=== PATIENT | male | born 1960 | race Caucasian/White ===

== ENCOUNTER 2019-06-29 16:56 | Outpatient (CLI) | payer BC, SELFPAY | END 2019-06-29 16:57 | disposition home or self-care (01) | LOC: ANHLAB 16:58 | PROVIDERS: PCP Internal Medicine; Visit Provider Internal Medicine | DX: R19.7 Diarrhea, unspecified (principal) | CPT/HCPCS: 87045; 87046; 87324; 87427 ==

== ENCOUNTER 2019-07-01 13:18 | Outpatient (CLI) | payer BC, SELFPAY | END 2019-07-01 13:19 | disposition home or self-care (01) | PROVIDERS: PCP Internal Medicine; Visit Provider Internal Medicine | DX: R19.7 Diarrhea, unspecified (principal) | CPT/HCPCS: 87045; 87046; 87427 ==

== ENCOUNTER 2019-07-26 14:15 | Outpatient (CLI) | payer BC, SELFPAY | END 2019-07-26 14:16 | disposition home or self-care (01) | PROVIDERS: PCP Internal Medicine; Visit Provider Internal Medicine | DX: A04.72 Enterocolitis due to Clostridium difficile, not specified as recurrent (principal) | CPT/HCPCS: 87324 ==

== ENCOUNTER 2019-10-27 07:30 | Outpatient (RCR) | payer BC, SELFPAY | END 2019-10-27 23:59 | disposition home or self-care (01) | LOC: ANHAUDIO 07:30 | PROVIDERS: PCP Internal Medicine; Visit Provider Internal Medicine | DX: Z46.1 Encounter for fitting and adjustment of hearing aid (principal) | CPT/HCPCS: 99199 ==

== ENCOUNTER 2020-05-11 11:35 | Outpatient (CLI) | payer BC, SELFPAY | END 2020-05-11 11:36 | disposition home or self-care (01) | PROVIDERS: PCP Internal Medicine; Visit Provider Internal Medicine | DX: R19.7 Diarrhea, unspecified (principal) | CPT/HCPCS: 87045; 87046; 87324; 87427 ==

== ENCOUNTER 2020-07-01 11:49 | Outpatient (CLI) | payer BC, SELFPAY | END 2020-07-01 11:50 | disposition home or self-care (01) | PROVIDERS: PCP Internal Medicine; Visit Provider Internal Medicine Gastroenterology | DX: K52.9 Noninfective gastroenteritis and colitis, unspecified (principal) | CPT/HCPCS: 87324 ==

== ENCOUNTER → 2020-07-20 06:37 | Outpatient (CLI) | payer BC, SELFPAY ==
[2020-07-20 19:16] LABS: SARS-CoV-2 RNA PCR Negative
== END ==
PROVIDERS: PCP Internal Medicine; Visit Provider Internal Medicine Gastroenterology
DX: Z01.812 Encounter for preprocedural laboratory examination (principal); Z20.822 Contact with and (suspected) exposure to COVID-19
CPT/HCPCS: C9803; U0003; U0005

== ENCOUNTER 2020-07-24 01:19 | Day surgery (SDC) | payer BC, SELFPAY ==
[2020-07-15 10:16] VITALS: BMI 44.8
[2020-07-24 09:24] VITALS: BP 136/95; PULSE 93; RESP 18; TEMP 36.6; O2SAT 96; BMI 41.5
--- NOTE | 2020-07-24 09:29 | WPDANESEPPF ---
Anes - Initial Pre Proc Eval Procedure: Operation Date: 07/24/20 10:30 Proposed Procedures p Colonoscopy - Hugo Bojorquez MD Date/Time: 07/24/20 09:29 Surgeon: Hugo Bojorquez MD Pre Op Diagnosis: diarrhea Patient Data Age: 59 Gender: M Height: 6 ft Weight: 139 kg Last Vital Signs Temp 36.6 C 07/24/20 09:24 Pulse 93 07/24/20 09:24 Resp 18 07/24/20 09:24 BP 136/95 H 07/24/20 09:24 Pulse Ox 96 07/24/20 09:24 Allergies Allergy/AdvReac Type Severity Reaction Status Date / Time No Known Allergies Allergy Verified 07/15/20 10:13 Home Medications Medication Instructions Recorded Confirmed Type bupropion HCl 300 mg 24 hr tablet, See Rx Instructions .ROUTE 09/28/19 07/15/20 Rx extended release .COMPLEX #90 tablet atorvastatin 20 mg tablet See Rx Instructions .ROUTE 03/04/20 07/15/20 Rx .COMPLEX #90 tablet citalopram 20 mg tablet See Rx Instructions .ROUTE 03/18/20 07/15/20 Rx .COMPLEX #90 tablet amlodipine 5 mg tablet See Rx Instructions .ROUTE 04/24/20 07/15/20 Rx .COMPLEX #90 tablet candesartan 32 mg tablet See Rx Instructions .ROUTE 05/31/20 07/15/20 Rx .COMPLEX #90 tablet diphenoxylate-atropine [Lomotil] 1 tablet PO TID PRN 07/15/20 07/15/20 History lansoprazole [Prevacid SoluTab] 30 mg PO DAILY 07/15/20 07/15/20 History Patient hx anesthesia problems: none Family hx anesthesia problems: none PMFSH Past Medical History Medical History Depression Gastroesophageal reflux disease Hypertension Mixed hyperlipidemia PHILIPPE (obstructive sleep apnea) Family History Family History Mother Carcinoma of colon Family history of heart disease in male family member before age 55 Father Family history of heart disease in male family member before age 55 Acute myocardial infarction Ulcerative colitis Social History Social History Smoking status: Never smoker Alcohol intake: never Substance use type: does not use Living arrangements: with family Gender identity (if verbalized by the patient): Male Anes - Eval Final PreProcedure Day of Procedure 07/24/20 09:29 Patient weight: morbidly obese Heart: regular rate and rhythm Lungs: clear to auscultation Airway: Mallampati scale class II Neurological: alert and oriented Last oral intake: >/= 8 hours ASA classification: III Emergent: no Anesthetic plan: proceed Anesthesia type and monitoring: general GIVS and standard monitoring Informed Consent: The patient's anesthetic plan and its attendant risks and benefits were discussed with the patient/family/POA. Questions were solicited and answers provided to the satisfaction of the patient/family/POA.
[2020-07-24] MEDS: LACTATED RINGERS 1,000 ML 150 ML IV CONT (09:34)
[2020-07-24 11:09] VITALS: BP 90/53; PULSE 82; RESP 24; O2SAT 94
[2020-07-24 11:19] VITALS: BP 111/71; PULSE 80; RESP 21; O2SAT 98
[2020-07-24 11:29] VITALS: BP 109/70; PULSE 77; RESP 18; O2SAT 98
--- NOTE | 2020-07-26 16:17 | PM.HPGS ---
History of Present Illness History of Present Illness Consent: Risks, benefits, and alternatives have been discussed and questions answered. Patient agrees to proceed with procedure. Chief complaint: diarrhea Narrative: Pedro Almonte is a 59 year old male with chronic diarrhea. Beginning in April he began to have very frequent loose and fact watery stools. Stool cultures were done all of which came back negative. Initially C difficile could not be tested because he had taken a stool that was not liquid enough; but we then repeated and it was negative Review of Systems Review of Systems: All systems reviewed & are unremarkable except as noted in HPI and below PMFSH Past Medical History Medical History Depression Gastroesophageal reflux disease Hypertension Mixed hyperlipidemia PHILIPPE (obstructive sleep apnea) Family History Family History Mother Carcinoma of colon Family history of heart disease in male family member before age 55 Father Family history of heart disease in male family member before age 55 Acute myocardial infarction Ulcerative colitis Social History Social History Smoking status: Never smoker Alcohol intake: never Substance use type: does not use Living arrangements: with family Gender identity (if verbalized by the patient): Male Meds Home Medications and Allergies Home Medications Medication Instructions Recorded Confirmed Type bupropion HCl 300 mg 24 hr tablet, See Rx Instructions .ROUTE 09/28/19 07/15/20 Rx extended release .COMPLEX #90 tablet atorvastatin 20 mg tablet See Rx Instructions .ROUTE 03/04/20 07/15/20 Rx .COMPLEX #90 tablet citalopram 20 mg tablet See Rx Instructions .ROUTE 03/18/20 07/15/20 Rx .COMPLEX #90 tablet amlodipine 5 mg tablet See Rx Instructions .ROUTE 04/24/20 07/15/20 Rx .COMPLEX #90 tablet candesartan 32 mg tablet See Rx Instructions .ROUTE 05/31/20 07/15/20 Rx .COMPLEX #90 tablet diphenoxylate-atropine [Lomotil] 1 tablet PO TID PRN 07/15/20 07/15/20 History lansoprazole [Prevacid SoluTab] 30 mg PO DAILY 07/15/20 07/15/20 History Allergies Allergy/AdvReac Type Severity Reaction Status Date / Time No Known Allergies Allergy Verified 07/15/20 10:13 Exam Resp: Auscultation: clear to auscultation bilaterally Cardio: Rate: regular rate Rhythm: regular rhythm GI: GI Palp: Yes Soft to palpation and No Tenderness to palpation present (GI) Assessment and Plan Assessment and plan (1) Chronic diarrhea: Code(s): K52.9 - Noninfective gastroenteritis and colitis, unspecified Status: Acute Assessment and Plan: Colonoscopy with possible biopsy or polypectomy or cautery or injection of substances.
== END 2020-07-24 11:38 | disposition home or self-care (01) ==
PROVIDERS: PCP Internal Medicine; Visit Provider Internal Medicine Gastroenterology
PROC: 0DJD8ZZ Inspection of Lower Intestinal Tract, Via Natural or Artificial Opening Endoscopic (ICD-10-PCS; CPT 45378; principal; 2020-07-24 10:30)
DX: R19.7 Diarrhea, unspecified (principal); D12.5 Benign neoplasm of sigmoid colon; I10 Essential (primary) hypertension; E78.2 Mixed hyperlipidemia; G47.33 Obstructive sleep apnea (adult) (pediatric); K21.9 Gastro-esophageal reflux disease without esophagitis; F32.9 Major depressive disorder, single episode, unspecified; E66.01 Morbid (severe) obesity due to excess calories; Z68.41 Body mass index [BMI] 40.0-44.9, adult
CPT/HCPCS: 45380; 45385; 88305; J2001; J2704; J7120

== ENCOUNTER 2020-09-05 08:00 | Outpatient (RCR) | payer SELFPAY | END 2020-09-05 23:59 | disposition home or self-care (01) | LOC: ANHAUDIO 08:00 | PROVIDERS: PCP Internal Medicine; Visit Provider Internal Medicine | DX: Z46.1 Encounter for fitting and adjustment of hearing aid (principal) | CPT/HCPCS: 99199; V5014 ==

== ENCOUNTER 2020-12-04 08:31 | Outpatient (CLI) | payer BC, SELFPAY ==
[2020-12-04 09:00] LABS: Alanine Aminotransferase 19 U/L (4-50); Albumin Level 4.5 g/dL (3.5-5.1); Alkaline Phosphatase 92 U/L (38-126); Anion Gap 11 mmol/L (8-16); Aspartate Amino Transferase 24 U/L (17-59); Bilirubin,Total 0.7 mg/dL (0.2-1.3); Blood Urea Nitrogen 11 mg/dL (9-20); Calcium 9.7 mg/dL (8.4-10.2); Carbon Dioxide 22 mmol/L (22-30); Chloride 107 mmol/L (98-107); Cholesterol 112 mg/dL (0-200); Estimated Glomerular Filt Rate > 60; Glucose 98 mg/dL (65-110); HDL Direct 33 mg/dL; Potassium 4.2 mmol/L (3.4-5.0); Sodium 140 mmol/L (137-145); Triglycerides 61 mg/dL (<150)
[2020-12-04 09:10] LABS: LDL Cholesterol Direct 57 mg/dL
[2020-12-04 09:29] LABS: Prostate Specific Antigen 1.1 ng/mL (< OR = 4.0)
== END 2020-12-04 08:32 | disposition home or self-care (01) ==
PROVIDERS: PCP Internal Medicine; Visit Provider Internal Medicine
DX: Z79.899 Other long term (current) drug therapy (principal); I10 Essential (primary) hypertension; Z12.5 Encounter for screening for malignant neoplasm of prostate; E78.5 Hyperlipidemia, unspecified
CPT/HCPCS: 36415; 80053; 80061; 84153; G0103

== ENCOUNTER 2021-01-30 12:34 | Outpatient (RCR) | payer BC, SELFPAY | END 2021-01-30 23:59 | disposition home or self-care (01) | LOC: ANHAUDIO 12:34 | PROVIDERS: PCP Internal Medicine; Visit Provider Internal Medicine | DX: Z46.1 Encounter for fitting and adjustment of hearing aid (principal) | CPT/HCPCS: 99199 ==

== ENCOUNTER 2021-06-10 07:27 | Outpatient (CLI) | payer BC, SELFPAY ==
[2021-06-10 08:07] LABS: Alanine Aminotransferase 16 U/L (4-50); Alkaline Phosphatase 67 U/L (38-126); Anion Gap 5 mmol/L (8-16); Aspartate Amino Transferase 24 U/L (17-59); Bilirubin,Total 0.7 mg/dL (0.2-1.3); Blood Urea Nitrogen 17 mg/dL (9-20); Calcium 8.7 mg/dL (8.4-10.2); Carbon Dioxide 26 mmol/L (22-30); Chloride 108 mmol/L (98-107); Cholesterol 122 mg/dL (0-200); Estimated Glomerular Filt Rate > 60; Glucose 94 mg/dL (65-110); HDL Direct 34 mg/dL; Potassium 4.1 mmol/L (3.4-5.0); Sodium 139 mmol/L (137-145); Triglycerides 59 mg/dL (<150)
[2021-06-10 08:19] LABS: LDL Cholesterol Direct 67 mg/dL
== END 2021-06-10 07:28 | disposition home or self-care (01) ==
PROVIDERS: PCP Internal Medicine; Visit Provider Internal Medicine
DX: E78.5 Hyperlipidemia, unspecified (principal); Z79.899 Other long term (current) drug therapy; I10 Essential (primary) hypertension
CPT/HCPCS: 36415; 80053; 80061

== ENCOUNTER 2021-11-04 08:00 | Outpatient (RCR) | payer BC, SELFPAY | END 2021-11-04 23:59 | disposition home or self-care (01) | LOC: ANHAUDIO 08:00 | PROVIDERS: PCP Internal Medicine; Visit Provider Internal Medicine | DX: Z46.1 Encounter for fitting and adjustment of hearing aid (principal) | CPT/HCPCS: 99199; V5014 ==

== ENCOUNTER 2022-01-09 08:22 | Outpatient (CLI) | payer BC, SELFPAY ==
[2022-01-09 09:04] LABS: Alanine Aminotransferase 22 U/L (6-50); Albumin Level 4.2 g/dL (3.5-5.1); Alkaline Phosphatase 66 U/L (38-126); Anion Gap 7 mmol/L (8-16); Aspartate Amino Transferase 26 U/L (17-59); Bilirubin,Total 0.9 mg/dL (0.2-1.3); Blood Urea Nitrogen 18 mg/dL (9-20); Calcium 8.9 mg/dL (8.4-10.2); Carbon Dioxide 27 mmol/L (22-30); Chloride 105 mmol/L (98-107); Cholesterol 117 mg/dL (0-200); Estimated Glomerular Filt Rate > 60; Glucose 99 mg/dL (65-110); HDL Direct 40 mg/dL; Potassium 4.3 mmol/L (3.4-5.0); Sodium 139 mmol/L (137-145); Triglycerides 47 mg/dL (<150)
[2022-01-09 09:17] LABS: LDL Cholesterol Direct 64 mg/dL
== END 2022-01-09 08:23 | disposition home or self-care (01) ==
PROVIDERS: PCP Internal Medicine; Visit Provider Nurse Practitioner
DX: E78.5 Hyperlipidemia, unspecified (principal); Z12.5 Encounter for screening for malignant neoplasm of prostate
CPT/HCPCS: 36415; 80053; 80061; 84153; G0103

== ENCOUNTER 2022-02-02 08:30 | Outpatient (CLI) | payer BC, SELFPAY | END 2022-02-02 08:31 | disposition home or self-care (01) | LOC: ANHAUDASC 08:30 | PROVIDERS: PCP Internal Medicine; Visit Provider Internal Medicine | DX: H90.3 Sensorineural hearing loss, bilateral (principal) | CPT/HCPCS: 92557; 92567 ==

== ENCOUNTER 2022-07-17 07:43 | Outpatient (CLI) | payer BC, SELFPAY ==
[2022-07-17 08:41] LABS: Alanine Aminotransferase 18 U/L (6-50); Albumin Level 4.3 g/dL (3.5-5.1); Alkaline Phosphatase 61 U/L (38-126); Anion Gap 7 mmol/L (8-16); Aspartate Amino Transferase 21 U/L (17-59); Bilirubin,Total 0.8 mg/dL (0.2-1.3); Blood Urea Nitrogen 19 mg/dL (9-20); Calcium 8.8 mg/dL (8.4-10.2); Carbon Dioxide 26 mmol/L (22-30); Chloride 104 mmol/L (98-107); Cholesterol 132 mg/dL (0-200); Estimated Glomerular Filt Rate > 60; Glucose 94 mg/dL (65-110); HDL Direct 38 mg/dL; Potassium 4.1 mmol/L (3.4-5.0); Sodium 137 mmol/L (137-145); Triglycerides 63 mg/dL (<150)
[2022-07-17 08:52] LABS: LDL Cholesterol Direct 74 mg/dL
== END 2022-07-17 07:44 | disposition home or self-care (01) ==
LOC: ANHLAB 07:45
PROVIDERS: PCP Internal Medicine; Visit Provider Internal Medicine
DX: E78.2 Mixed hyperlipidemia (principal); I10 Essential (primary) hypertension
CPT/HCPCS: 36415; 80053; 80061

== ENCOUNTER 2023-04-16 09:40 | Outpatient (CLI) | payer BC, SELFPAY ==
[2023-04-16 10:00] LABS: Basophils Absolute Auto 0.1 K/mm3 (0.0-0.1); Basophils Percent Auto 0.7 % (0.2-1.2); Eosinophils Absolute Auto 0.2 K/mm3 (0-0.3); Eosinophils Percent Auto 3.4 % (0-4.4); Hematocrit 41.6 % (42.0-52.0); Hemoglobin 13.9 g/dL (14.0-18.0); Immature Granulocyte Absolute 0.02 K/mm3 (0.00-0.031); Immature Granulocyte Percent A 0.3 % (0-0.5); Lymphocytes Absolute Auto 2.59 K/mm3 (0.9-3.2); Lymphocytes Percent Auto 37.9 % (18.3-44.2); Mean Corpuscular HGB Conc 33.4 g/dl (32-36); Mean Corpuscular Volume 95.9 fl (80-100); Mean Platelet Volume 10.2 fl (7.4-10.4); Monocytes Absolute Auto 0.9 K/mm3 (0.1-0.6); Monocytes Percent Auto 12.7 % (2.6-8.5); Neutrophils Absolute Auto 3.1 K/mm3 (1.3-6.7); Platelet Count Result 250 k/mm3 (150-375); Red Blood Count 4.34 M/mm3 (4.6-6.20); Red Cell Distribution Width 13.7 % (11.5-14.5); White Blood Count 6.8 K/mm3 (4.5-10.0)
[2023-04-16 10:17] LABS: Alanine Aminotransferase 23 U/L (6-50); Albumin Level 4.1 g/dL (3.5-5.1); Alkaline Phosphatase 72 U/L (38-126); Anion Gap 8 mmol/L (8-16); Aspartate Amino Transferase 29 U/L (17-59); Bilirubin,Total 0.8 mg/dL (0.2-1.3); Blood Urea Nitrogen 19 mg/dL (9-20); Calcium 9.3 mg/dL (8.4-10.2); Carbon Dioxide 26 mmol/L (22-30); Chloride 105 mmol/L (98-107); Cholesterol 139 mg/dL (0-200); Estimated Glomerular Filt Rate > 60; Glucose 94 mg/dL (65-110); HDL Direct 35 mg/dL; Potassium 4.2 mmol/L (3.4-5.0); Sodium 139 mmol/L (137-145); Triglycerides 63 mg/dL (<150)
[2023-04-16 10:33] LABS: Vitamin D 25 Hydroxy 52.1 ng/mL
[2023-04-16 10:48] LABS: Prostate Specific Antigen 0.7 ng/mL (< OR = 4.0)
[2023-04-16 13:21] LABS: LDL Cholesterol Direct 98 mg/dL
== END 2023-04-16 09:41 | disposition home or self-care (01) ==
LOC: ANHLAB 09:42
PROVIDERS: PCP Nurse Practitioner; Visit Provider Nurse Practitioner
DX: Z00.00 Encounter for general adult medical examination without abnormal findings (principal); E55.9 Vitamin D deficiency, unspecified; I10 Essential (primary) hypertension; E78.2 Mixed hyperlipidemia; Z12.5 Encounter for screening for malignant neoplasm of prostate
CPT/HCPCS: 36415; 80053; 80061; 82306; 82607; 84153; 85025; G0103

== ENCOUNTER 2024-06-02 10:14 | Outpatient (CLI) | payer BC, SELFPAY ==
--- OUTSIDE RECORDS SUMMARY | 2024-06-02 10:56 | XMS_ITS ---
Author Organization [facility] [employer] Address [address] [place] [address] Care Team Providers Care Credit Advisor Name Role Phone Sam CLIFTON, Milo Primary Care Provider Donnie Wilkinson Unavailable [phone] REASON FOR VISIT Refill Medications Medication SIG (Take, Route, Fr equency, Duration) Notes Start Date End Date Status Trintellix 20 MG 1 tablet Oral Once a day for 30 days Active Social History Sex Assigned At : Social History Observation Description Sex Assigned At Male Encounters Encounter Location Date Provider Diagnosis [facility] [address] [place] [address] 04/28/2024 Donnie Sy Major depressive disorder, recurrent, mild F33.0 Assessments Encounter Date Diagnosis (ICD Code) Assessment Notes Treatment Notes Treatment Clinical Notes Section Notes 04/28/2024 Major depressive disorder, recurrent, mild (ICD-10 - F33.0) Plan Of Treatment Medication Medication Name Sig Start Date Stop Date Notes Trintellix 20 MG 1 tablet Oral Once a day for 30 days Next Appt Details Provider Name:Donnie ascencio, 06/26/2024 11:45:00 AM, [address], [address], [place], [address], Progress Notes * GALEN FRANCEDOB:1960 (63 yo M)Acc No.[id number]:04/28/2024 Patient: GALEN STOVALL :1960 A ge:63 Y S ex:Male Address:[address], [place], [address] * Refills Refill Trintellix Tablet, 20 MG, Oral, 30 Tablet, 1 tablet, Once a day, 30 days, Refills=0 * true * Date: Generated for Andrei rhodes/Amy/Rajeev on: 0 06/02/2024 10:56 AM CDT
--- OUTSIDE RECORDS SUMMARY | 2024-06-02 10:56 | XMS_ITS | Patient Health Record ---
Author Organization [facility] Address [address] [facility] [address] [place] [address] Care Team Providers Care Mesh Cutter Name Role Phone Sam CLIFTON, Milo Primary Care Provider Unavaila Donnie Archer Unavailable [phone] Migration, Provider Unavailable Unavailable Allergies No Known Allergies Results Component Value Reference Range Notes UDT Reviewed date:08/26/2023 03:27:58 PM Interpretation: Performing Lab: Notes/Report: THC negative 0 - 50 ng/ml Cocaine negative Amphetamine negative Buprenorphine (BUP) negative Secobarbital (Bar) negative Oxazepam (BZO) negative 6-zxoiujsubp-5,0-rnmenkib-7, 3-diphenylpyrrolidine (EDDP) negative Methamphetamine (MET) negative Methylenedioxymethamphetamine (MDMA) negative Morphine (MOP 300/SYT1259) negative Methadone (MTD) negative Phencyclidine (PCP) negative Nortriptyline (TCA) negative x negative Reason For Referral No Information Medications Medication SIG (Take, Route, Frequency, Duration) Notes Start Date End Date Status Lisdexamfetamine Dimesylate 30 MG 1 capsule in the morning Orally Once a day for 30 days 05/01/2024 Active Candesartan Cilexetil 32 MG Oral 07/26/2023 Active Tamsulosin HCl 0.4 MG Oral 07/26/2023 Active Trintellix 20 MG 1 tablet Oral Once a day for 90 days Active Methylphenidate HCl ER 36 MG 2 tablet ev marlene morning Oral once a day for 30 days 04/05/2024 Active Trintellix 20 MG 1 tablet Orally Once a day for 30 day(s) 12/20/2023 Active amLODIPine Besylate 5 MG Oral 07/26/2023 Active Atorvastatin Calcium 20 MG Oral 07/26/2023 Active Social History Tobacco Use: Social History Observation Description Date Details (start date - stop date) Never Smoker NA - NA Sex Assigned At : Social History Observation Description Sex Assigned At Male Tobacco Control (Standard) Question Answer Notes Tobacco use: Nonsmoker Problems Problem Type SNOMED Code ICD Code Onset Dates Problem Status W/U Status Risk Notes Problem Mild recurrent major depression (90145024) Major depressive disorder, recurrent, mild (F33.0) Active confirmed Problem Generalized anxiety disorder (13928981) Generalized anxiety disorder (F41.1) Active confirmed Problem Attention deficit hyperactivity disorder, combined type (38117066) Attention-deficit hyperactivity disorder, combined type (F90.2) 07/26/19 24 Active confirmed Vital Signs Heart Rate 97 /min 05/01/2024 Blood pressure diastolic 69 mm Hg 05/01/2024 Height-cm 182.88 cm 05/01/2024 Weight-kg 112.04 kg 05/01/2024 Height 72.00 in 05/01/2024 Blood pressure systolic 105 mm Hg 05/01/2024 Weight 247 lbs 05/01/2024 BMI 33.5 kg/m2 05/01/2024 Encounters Encounter Location Date Provider Diagnosis [facility] [address] [facility] [address] [place] [address] 06/14/2023 Provider Migration Attention-deficit hyperactivity disorder, combined type F90.2 [facility] [employer] [facility] [address] [place] [address] 06/24/2023 Donnie Sy Attention-deficit hyperactivity disorder, combined type F90.2 ; Major depressive disorder, recurrent, mild F33.0 and Generalized anxiety disorder F41.1 [employer] [address] [place] [address] 07/26/2023 Donnie Sy Generalized anxiety disorder F41.1 ; Major depressive disorder, recurrent, mild F33.0 and Attention-deficit hyperactivity disorder, combined type F90.2 [facility] [employer] [facility] [address] [place] [address] 08/26/2023 Donnie Sy Generalized anxiety disorder F41.1 ; Attention-deficit hyperactivity disorder, combined type F90.2 and Major depressive disorder, recurrent, mild F33.0 [facility], [facility] [address] [place] [address] 12/29/2023 Donnie Sy Generalized anxiety disorder F41.1 ; Attention-deficit hyperactivity disorder, combined type F90.2 and Major depressive disorder, recurrent, mild F33.0 [facility], [facility] [address] [place] [address] 05/01/2024 Donnie Sy Generalized anxiety disorder F41.1 ; Attention-deficit hyperactivity disorder, combined type F90.2 and Major depressive disorder, recurrent, mild F33.0 [facility], [facility] [address] [place] [address] 06/14/2023 Provider Migration [facility], [facility] [address] [place] [address] 08/07/2023 Provider Migration [facility], [facility] [address] [place] [address] 08/08/2023 Provider Migration [facility], [facility] [address] [place] [address] 10/26/2023 Donnie Sy Attention-deficit hyperactivity disorder, combined type F90.2 [facility], [facility] [address] [place] [address] 12/02/2023 Donnie Sy Attention-deficit hyperactivity disorder, combined type F90.2 [facility], [facility] [address] [place] [address] 12/17/2023 Donnie Sy Major depressive disorder, recurrent, mild F33.0 [facility], [facility] [address] [place] [address] 12/17/2023 Donnie Sy Major depressive disorder, recurrent, mild F33.0 [facility], [facility] [address] [place] [address] 01/11/2024 Donnie Sy Attention-deficit hyperactivity disorder, combined type F90.2 [facility], [facility] [address] [place] [address] 02/21/2024 Donnie Sy Attention-deficit hyperactivity disorder, combined type F90.2 [facility], [facility] [address] [place] [address] 04/05/2024 Donnie Sy Attention-deficit hyperactivity disorder, combined type F90.2 [facility] [address] [place] [address] 04/28/2024 Donnie Sy Major depressive disorder, recurrent, mild F33.0 Assessments Encounter Date Diagnosis (ICD Code) Assessment Notes Treatment Notes Treatment Clinical Notes Section Notes 12/02/2023 Attention-defic it hyperactivity disorder, combined type (ICD-10 - F90.2) 01/11/2024 Attention-defic it hyperactivity disorder, combined type (ICD-10 - F90.2) 02/21/2024 Attention-defic it hyperactivity disorder, combined type (ICD-10 - F90.2) 04/05/2024 Attention-defic it hyperactivity disorder, combined type (ICD-10 - F90.2) 04/28/2024 Major depressive disorder, recurrent, mild (ICD-10 - F33.0) 12/29/2023 Generalized anxiety disorder (ICD-10 - F41.1) stable 1. ADHD: - Patient reports Concerta 72 mg daily is working well for managing ADHD symptoms. - Patient is implementing personal strategies to improve work productivity. Plan: - Continue Concerta 72 mg daily. - Encourage the patient to continue using personal strategies to improve work productivity. - Monitor progress and effectiveness of medication at follow-up visits. 2. Depression: - Patient reports significant improvement in depressive symptoms with Trintellix 20 mg daily. Plan: - Continue Trintellix 20 mg daily. - Monitor progress and effectiveness of medication at follow-up visits. 3. Anxiety: - Patient reports no recent episodes of anxiety. Plan: - Continue to monitor anxiety levels at follow-up visits. 4. Follow-up: - Patient is stable and functioning well. Plan: - Schedule a follow-up visit in 4 months to monitor progress and medication effectiveness. 05/01/2024 Generalized anxiety disorder (ICD-10 - F41.1) stable 12/17/2023 Major depressive disorder, recurrent, mild (ICD-10 - F33.0) 10/26/2023 Attention-defic it hyperactivity disorder, combined type (ICD-10 - F90.2) 08/26/2023 Generalized anxiety disorder (ICD-10 - F41.1) 08/26/2023 Attention-defic it hyperactivity disorder, combined type (ICD-10 - F90.2) 07/26/2023 Major depressive disorder, recurrent, mild (ICD-10 - F33.0) 07/26/2023 Generalized anxiety disorder (ICD-10 - F41.1) 07/26/2023 Attention-defic it hyperactivity disorder, combined type (ICD-10 - F90.2) 06/24/2023 Major depressive disorder, recurrent, mild (ICD-10 - F33.0) 06/24/2023 Generalized anxiety disorder (ICD-10 - F41.1) 06/24/2023 Attention-defic it hyperactivity disorder, combined type (ICD-10 - F90.2) 06/14/2023 Attention-defic it hyperactivity disorder, combined type (ICD-10 - F90.2) 12/17/2023 Major depressive disorder, recurrent, mild (ICD-10 - F33.0) Electronic Prior Authorization was requested for Trintellix 20 MG Tablet. Provider can order medication once approval received. 05/01/2024 Attention-defic it hyperactivity disorder, combined type (ICD-10 - F90.2) 08/26/2023 Major depressive disorder, recurrent, mild (ICD-10 - F33.0) 12/29/2023 Attention-defic it hyperactivity disorder, combined type (ICD-10 - F90.2) 1. ADHD: - Patient reports Concerta 72 mg daily is working well for managing ADHD symptoms. - Patient is implementing personal strategies to improve work productivity. Plan: - Continue Concerta 72 mg daily. - Encourage the patient to continue using personal strategies to improve work productivity. - Monitor progress and effectiveness of medication at follow-up visits. 2. Depression: - Patient reports significant improvement in depressive symptoms with Trintellix 20 mg daily. Plan: - Continue Trintellix 20 mg daily. - Monitor progress and effectiveness of medication at follow-up visits. 3. Anxiety: - Patient reports no recent episodes of anxiety. Plan: - Continue to monitor anxiety levels at follow-up visits. 4. Follow-up: - Patient is stable and functioning well. Plan: - Schedule a follow-up visit in 4 months to monitor progress and medication effectiveness. 05/01/2024 Major depressive disorder, recurrent, mild (ICD-10 - F33.0) 12/29/2023 Major depressive disorder, recurrent, mild (ICD-10 - F33.0) 1. ADHD: - Patient reports Concerta 72 mg daily is working well for managing ADHD symptoms. - Patient is implementing personal strategies to improve work productivity. Plan: - Continue Concerta 72 mg daily. - Encourage the patient to continue using personal strategies to improve work productivity. - Monitor progress and effectiveness of medication at follow-up visits. 2. Depression: - Patient reports significant improvement in depressive symptoms with Trintellix 20 mg daily. Plan: - Continue Trintellix 20 mg daily. - Monitor progress and effectiveness of medication at follow-up visits. 3. Anxiety: - Patient reports no recent episodes of anxiety. Plan: - Continue to monitor anxiety levels at follow-up visits. 4. Follow-up: - Patient is stable and functioning well. Plan: - Schedule a follow-up visit in 4 months to monitor progress and medication effectiveness. 05/01/2024 Other 1. ADHD: - Patient reports struggling with motivation and inconsistent focus on Concerta 72 mg daily. Plan: - Discontinue Concerta. - Start lisdexamfetamine (Vyvanse) 30 mg daily in the morning. - Monitor for improvement in motivation and focus. - Encourage the patient to follow up in 4 weeks to assess the effectiveness of the new medication. 2. Difficulty finding a therapist for ADHD: - Patient expressed interest in finding a therapist with practical tools for ADHD. Plan: - Provided patient with information on [facility] and therapist Beverly Moore in [place]. - Recommended [facility] as a resource for ADHD information and support. 3. Sleep apnea: - Patient reports having a history of sleep apnea, previously treated with CPAP. - Patient has gained weight and may need to use the CPAP machine again but requires replacement parts and a new prescription. Plan: - Encourage the patient to follow up with their primary care provider or sleep specialist to obtain a new prescription for CPAP machine parts and discuss the need for a sleep study if necessary. Plan Of Treatment Next Appt Details Provider Name:oDnnie ascencio, 06/26/2024 11:45:00 AM, [address], [address], [place], [address], Insurance Providers Payer Name Payer Address Payer Phone Subscriber Number Group Number Insured Name Patient Relationship to Insured Coverage Start Date Coverage End Date [facility] [address] [place] [address] [id number] GRIFFIN FR[place] Spouse - patient is the spouse of the insured Medical (General) History Medical History History ICD Code Problems: Attention deficit hyperactivit y disorder, combined type Generalized anxiety disorder Mild recurrent major depression Moderate recurrent major depression , Surgical History Surgery Date(Month/Year) Any surgical history 10/21/1995
--- OUTSIDE RECORDS SUMMARY | 2024-06-02 10:56 | XMS_ITS ---
Author Organization [facility] Address [address] [facility] [address] [place] [address] Care Team Providers Care Exhibits Curator Name Role Phone zzzzMigration, zzzzProvider Unavailable Unav ailable REASON FOR VISIT [facility]MR-[facility] [place] Encounters Encounter Location Date Provider Diagnosis [facility] [address] [facility] [address] [place] [address] 01/10/2023 zzzzProvider zzzzMigration Plan Of Treatment No Information Progress Notes * JAIMECELIA PedroDOB:1960 (63 yo M)Acc No.[id number]:01/10/2023 Patient: Pedro STOVALL :1960 A ge:62 Y S ex:Male Address:[address] [place] [address] Subjective: * Chief Complaints: * E MR-Benito * Medical History: * Surgical History: * Hospitalization/Major Diagno stic Procedure: * Medications: Objective: * Vitals: * Physical Examination: Assessment: Plan: * Treatment: * Procedure Codes: * * Date:
--- OUTSIDE RECORDS SUMMARY | 2024-06-02 10:56 | XMS_ITS ---
Author Organization [facility] Address [address] [facility] [address] [place] [address] Care Team Providers Care Design Coordinator Name Role Phone zzzzMigration, zzzzProvider Unavailable Unav ailable REASON FOR VISIT [facility] Encounters Encounter Location Date Provider Diagnosis [facility] [address] [facility] [address] [place] [address] 01/09/2023 zzzzProvider zzzzMigration Plan Of Treatment No Information Progress Notes * JAIMECELIA PedroDOB:1960 (63 yo M)Acc No.[id number]:01/09/2023 Patient: Pedro STOVALL :1960 A ge:62 Y S ex:Male Address:[address] [place] [address] Subjective: * Chief Complaints: * E MR-Benito * Medical History: * Surgical History: * Hospitalization/Major Diagno stic Procedure: * Medications: Objective: * Vitals: * Physical Examination: Assessment: Plan: * Treatment: * Procedure Codes: * * Date:
--- OUTSIDE RECORDS SUMMARY | 2024-06-02 10:56 | XMS_ITS ---
Author Organization [facility] [employer] [facility] Address [facility] [facility] [address] [address] Care Team Providers Care Narrow Fabric Loom Fixer Name Role Phone Sam CLIFTON, Milo Primary Care Provider Donnie Wilkinson Unavailable [phone] REASON FOR VISIT 1 month f/u; Pt is sick today Social History Sex Assigned At : Social History Observation Description Sex Assigned At Male Encounters Encounter Location Date Provider Diagnosis [facility] [employer] [place] [id number] [address] [facility] [address] [place] [address] 05/29/2024 Donnie Sy Plan Of Treatment Next Appt Details Provider Name:Donnie ascencio, 06/26/2024 11:45:00 AM, [address], [facility] [address], [place], [address], Progress Notes * GALEN FRANCEDOB:1960 (63 yo M)Acc No.[id number]:05/29/2024 Patient: GALEN STOVALL Provider: DAWN FAYEHNP :1960 A ge:63 Y S ex:Male Date:05/29/2024 Address:[address] [id number] Pcp:Milo Vargas NP Subjective: * Chief Complaints: * 1 . 1 month f/u; Pt is sick today. * Medical History: Objective: * Vitals: Assessment: Plan: * Treatment: * Billing Information: * Visit Code: * Procedure Codes: * Electronic signature of STONE Enriquez on 06/02/2024 at 10:56 AM CDT Sign off status: Pending * Provider: STONE FAYE Date: 0 05/29/2024 Generated for Andrei rhodes/Amy/Rajeev on: 0 06/02/2024 10:56 AM CDT
--- OUTSIDE RECORDS SUMMARY | 2024-06-02 10:57 | XMS_ITS | Patient Health Record ---
Author Organization [facility] Address [address] [facility] [address] [place] [address] Support Name Relationship Address Phone Pedro Almonte Guarantor Unknown [phone] Reason For Referral No Information Plan Of Treatment No Information
--- OUTSIDE RECORDS SUMMARY | 2024-06-02 10:57 | XMS_ITS | Data Portability ---
Author Organization [place] [facility], Main Office Address [address] [place] [address] Care Team Providers Care Telehealth Nurse Educator Name Role Phone YESSY QUINTANILLA Primary Care Provider [phone] YESSY QUINTANILLA Referring Provider [phone] Assessment No assessment recorded. Plan of Treatment Reminders Order Date Submit Date Provider Last Modified By Organization Details Last Modified Time Details Appointments None record ed. Lab None record ed. Referral None record ed. Procedures None record ed. Surgeries None record ed. Imaging None record ed. Medication Orders None record ed. Patient TargetsNo targets recorded. Patient InstructionsNo instructions recorded. Reason for Referral None Reported. Results Created Date Observation Date Name Description Value Unit Range Abnormal Flag Note LastModifiedBy Organization Detail LastModifiedTime 03/18/20 21 XR, knee, 3 view No observ ation record ed. [id number] [facility] [address], [place], [address], 05/20/2022 18:54:08 Result Notes None recorded. Problems Name Problem SNOMED Code Status Onset Date Resolution Date Notes Provider Name and Address Organization Details Recorded Time Current knee cartilage tear Active Not Available [facility] 3 18:52:59 Current tear of medial cartilage AND/OR meniscus of knee Active Not Available [facility] 3 18:52:59 Osteoarthr itis of right knee joint [id number] 00 Active 2021 Not Available [facility] 3 18:52:59 Osteoarthr itis [id number] Active Not Available [facility] 3 18:52:59 Notes:Some problems listed i n Document: #[id number] could not be added to this patient's chart. Please review this document and add these problems to the patient's chart manually as needed. Problem Notes None recorded. Procedures Surgical History None recorded. Imaging Results Imaging Date Name Status LastModified by Organiz ation Details LastModified Time 03/18/2021 XR, knee, 3 view completed [id number] [facility] [place] [address], [place], [address], 05/20/2022 18:54:08 Procedure Notes None recorded. Medical Equipment None Reported. Medications Name Sig Start Date Stop Date Status Note LastModified by Organization Details LastModified Time prednisone 10 mg tablet active Not Available Not Available Not Available atorvastati n 20 mg tablet TK ONE T PO QD active Not Available Not Available No t Available hydrocodone 5 mg-acetamin ophen 325 mg tablet 03/06 completed Not Available Not Available Not Available atovaquone 250 mg-proguani l 100 mg tablet 03/06 completed Not Available Not Available Not Available diphenoxyla te-atropine 2.5 mg-0.025 mg tablet TAKE 1 TABLET BY MOUTH THREE TIMES DAILY NEEDED FOR DIARRHEA active Not Available Not Available No t Available amlodipine 5 mg tablet active Not Available Not Available Not Available tramadol 50 mg tablet 03/06 completed Not Available Not Available Not Available prednisone 10 mg tablets in a dose pack Take 1 tab by mouth, 3 times a day for 3 daysTake 1 tab by mouth 2 times a day for 2 daysTake 1 tab by mouth once a day for 1 day active Not Available Not Available No t Available imiquimod 5 % topical cream packet 03/06 completed Not Available Not Available Not Available Kenalog 10 mg/mL suspension for injection In office injection administe red by the provider active [facility]: 0003- 0494- 20 Not Available Not Available Not Available valsartan 320 mg tablet 03/06 completed Not Available Not Available Not Available candesartan 32 mg tablet TAKE 1 TABLET BY MOUTH DAILY active Not Available Not Available No t Available methylpredn isolone 4 mg tablets in a dose pack 03/06 completed Not Available Not Available Not Available escitalopra m 10 mg tablet TAKE 1 TABLET BY MOUTH EVERY DAY active Not Available Not Available No t Available cholestyram ine (with sugar) 4 gram oral powder active Not Available Not Available Not Available bupropion HCl XL 300 mg 24 hr tablet, extended release TK 1 T PO D active Not Available Not Available No t Available lidocaine (PF) 10 mg/mL (1 %) injection solution In office injection administe red by the provider active [facility]: 0409- [id number]- 17 Not Available Not Available Not Available Suprep Bowel Prep Kit 17.5 gram-3.13 gram-1.6 gram oral solution active Not Available Not Available Not Available ID NOW COVID-19 Test Kit TEST DIRECTED active Not Available Not Available No t Available Vitals Date Recorded Body mass index (BMI) Body height Body weight Provider Name and Address Organization Details Last Updated DateTime 03/18/2021 32.5 kg/m2 182.88 cm 863474.17 g Not Available [facility] 05/20/2022 18:52:52 Date Recorded Body mass index (BMI) Body height Body weight Provider Name and Address Organization Details Last Updated DateTime 06/30/2021 32.5 kg/m2 182.88 cm 757518.17 g Not Available [facility] 05/20/2022 18:52:52 Social History Question Answer Notes LastModified by Organizat ion Details LastModified Time Tobacco Smoking Status Never Smoker Not Available [facility] 05/20/2022 18:52:20 What Is Your Level Of Alcohol Consumption? None [id number] Information not available 05/20/2022 Sex: Unknown Functional Status None recorded. Mental Status None recorded. Family History Relationship Description Onset Age of this Age Resolved Age Notes LastModified by Organization Details LastModified Time Mother Heart disease [id number] Not available 05/20/2022 18:52:22 Mother Cerebrovascu lar accident [id number] Not available 05/20/2022 18:52:22 Mother Family history of malignant neoplasm [id number] Not available 05/20/2022 18:52:22 Mother Hypertensive disorder [id number] Not available 05/20/2022 18:52:22 Medical History Condition Response CANCER: SPECIFY Y Past Encounters Encounter ID Performer Location Encounter Start Date Encounter Closed Date Diagnosis/Indication Diagnosis SNOMED-CT Code Diagnosis ICD10 Code Diagnosis Note [id number] [facility] [id number] [facility] [place] [address] 03/18/2021 00:00:00 03/18/2021 10:07:19 [id number] [facility] [address] [place] [id number] 06/30/2021 00:00:00 06/30/2021 09:55:36 Health Concerns Section Related Observation LastModified by Organization Detai ls LastModified Time None Recorded Concern Status LastModified by Organization Details LastModified Time None Recorded Advance Directives Directive None Recorded Payers None recorded. Notes Date Note Type Note Provider Name and Address Organization Details Recorded Time 03/18/2021 text/html KneeReported bypatient.Quality: aching; throbbing; dull Severity:moderate Duration:continuou s since onset Timing:chronic Alleviating Factors:sitting; lying down; rest; elevation Aggravating Factors:bending/sq uatting; weight bearing Associated Symptoms:no weakness; no numbness; no tingling; no redness; no ecchymosis; no catching/locking; no popping/clicking; no buckling; no instability; no radiation down leg; no drainage; no fever; no chills; no weight loss; no change in bowel/bladder habits;swelling;wa rmth;grinding Not Available [employer] [facility] [employer] [facility] 03/18/2021 10:07:19 06/30/2021 text/html KneeReported bypatient.Quality: aching; throbbing; dull Severity:moderate Duration:continuou s since onset Timing:chronic Alleviating Factors:sitting; lying down; rest; elevation Aggravating Factors:bending/sq uatting; weight bearing Associated Symptoms:no weakness; no numbness; no tingling; no redness; no ecchymosis; no catching/locking; no popping/clicking; no buckling; no instability; no radiation down leg; no drainage; no fever; no chills; no weight loss; no change in bowel/bladder habits;swelling;wa rmth;grinding Not Available [employer] [facility] [employer] [facility] 06/30/2021 09:55:36
--- OUTSIDE RECORDS SUMMARY | 2024-06-02 10:57 | XMS_ITS ---
Author Organization [facility] [employer] Address [address] [facility] [address] [place] [address] Care Team Providers Care Ecologist Name Role Phone Sam CLIFTON, Milo Primary Care Provider Donnie Wilkinson Unavailable [phone] Allergies No Known Allergies REASON FOR VISIT depression, adhd, anxiety, Depression screening positive Medications Medication SIG (Take, Route, Frequency, Duration) Notes Start Date End Date Status Candesartan Cilexetil 32 MG Oral 07/26/2023 Active Methylphenidate HCl ER 36 MG 2 tablet ev marlene morning Oral once a day for 30 days 04/05/2024 Active Trintellix 20 MG 1 tablet Orally Once a day for 30 day(s) 12/20/2023 Active amLODIPine Besylate 5 MG Oral 07/26/2023 Active Atorvastatin Calcium 20 MG Oral 07/26/2023 Active Lisdexamfetamine Dimesylate 30 MG 1 capsule in the morning Orally Once a day for 30 days 05/01/2024 Active Tamsulosin HCl 0.4 MG Oral 07/26/2023 Active Trintellix 20 MG 1 tablet Oral Once a day for 90 days Active Social History Tobacco Use: Social History Observation Description Date Details (start date - stop date) Never Smoker NA - NA Sex Assigned At : Social History Observation Description Sex Assigned At Male Tobacco Control (Standard) Question Answer Notes Tobacco use: Nonsmoker Vital Signs Blood pressure systolic 105 mm Hg 05/01/19 25 Blood pressure diastolic 69 mm Hg 025 Heart Rate 97 /min 05/01/2024 Height 72.00 in 05/01/2024 Weight 247 lbs 05/01/2024 BMI 33.5 kg/m2 05/01/2024 Height-cm 182.88 cm 05/01/2024 Weight-kg 112.04 kg 05/01/2024 Encounters Encounter Location Date [facility] [address] [place] [address] 05/01/2024 Donnie Sy Generalized anxiety disorder F41.1 ; Attention-deficit hyperactivity disorder, combined type F90.2 and Major depressive disorder, recurrent, mild F33.0 Assessments Encounter Date Diagnosis (ICD Code) Assessment Notes Treatment Notes Treatment Clinical Notes Section Notes 05/01/2024 Generalized anxiety disorder (ICD-10 - F41.1) stable 05/01/2024 Attention-deficit hyperactivity disorder, combined type (ICD-10 - F90.2) 05/01/2024 Major depressive disorder, recurrent, mild (ICD-10 - F33.0) 05/01/2024 Other 1. ADHD: - Patient reports [...] [facility] Beverly Moore in [place]. - Recommended farmhopping as a resource for ADHD information and [...] sleep study if necessary. Plan Of Treatment Medication Medication Name Sig Start Date Stop Date Notes Lisdexamfetamine Dimesylate 30 MG 1 caps ule in the morning Orally Once a day for 30 days 05/01/2024 Trintellix 20 MG 1 tablet Oral Once a day for 90 days Methylphenidate HCl ER 36 MG 2 tablet ev marlene morning Oral once a day 02/22/2024 Treatment Notes Assessment Notes Generalized anxiety disorder stable Next Appt Details Follow Up: 4 Weeks, Reason: f/u adhd Provider Name:Donnie ascencio, 06/26/2024 11:45:00 AM, [address], [address], [place], [address], Progress Notes * GALEN FRANCEDOB:1960 (63 yo M)Acc No.[id number]:05/01/2024 Patient: GALEN STOVALL Provider: STONE FAYE :1960 A ge:63 Y S ex:Male Date:05/01/2024 Address:[facility] [address], [id number] Pcp:Milo Vargas NP Subjective: * Chief Complaints: * D epression, adhd, anxietyDepression screening positive * HPI: D epression Screening: the note is transcribed using speech recognition software. It is a reflection of a visit with the patient. It might have some inaccuracy, including medication names and transcribing errors, though efforts have been made to correct them. Chief complaint- Motivation issues, possible ADHD symptom exacerbation. The patient reports ongoing struggles with motivation, which have been a long-standing issue but seem to worsen during winter months. He denies current depression symptoms. The patient is taking Concerta 72 mg daily for ADHD but reports variable efficacy. At work, he can maintain focus if he stays continually engaged in tasks, but finds it difficult to resume work after interruptions. At home, he experiences more significant difficulties with task initiation and completion. The patient expresses a desire for practical tools to manage his ADHD symptoms. He reports no feelings of sadness or low self-esteem but wishes he could accomplish more. The patient also mentions recent weight gain of 10-15 pounds and possible recurrence of sleep apnea symptoms, as noted by his . He previously used a CPAP machine but discontinued its use after significant weight loss. The patient's medical history includes ADHD and a history of sleep apnea, for which he previously used a CPAP machine. His current medications include Concerta 72 mg daily and Trintellix (dosage not specified). Regarding his social history, the patient is employed and lives with his spouse. He previously used a CPAP machine for sleep apnea but needs replacement parts and reassessment. In the review of systems, the patient reports psychiatric symptoms including struggles with motivation, especially in winter, difficulty refocusing after stopping a task, and feeling like just existing sometimes. His reports possible sleep apnea symptoms (snoring). The patient also mentions a general lack of energy. DINORA-7 (2018 Edition) F eeling nervous, anxious, or on edge?More than half the days, N ot being able to stop or control worrying S everal days,?Worrying too much about different things S everal , T rouble relaxing N ot at all, Being so restless that it is hard to sit still N ot at all, B ecoming easily annoyed or irritable N ot at all, F eeling afraid as if something awful might happen N ot at all, Total DINORA-7 Score 4 , I f you checked any problems, how difficult have they made it for you to do your work, take care of things at home, or get along with other people? N ot difficult at all, I nterpretation of Total ( 0 to 4) No Anxiety. [place]-Suicide Severity Rating Scale: Suicide Risk (CSRS-screener) i n the past one month Have you wished you were or wished you could go to sleep and not wake up? N o, i n the past one month Have you actually had any thoughts of killing yourself? N o. D epression screening: PHQ-9 L ittle interest or pleasure in doing things M ore than half the days, F eeling down, depressed, or hopeless S everal days, T rouble falling or staying asleep, or sleeping too much N early every day, F eeling tired or having little energy N early every day, P oor appetite or overeating N ot at all, F eeling bad about yourself or that you are a failure, or have let yourself or your family down S everal days, T rouble concentrating on things, such as reading the newspaper or watching television N ot at all, M oving or speaking so slowly that other people could have noticed; or the opposite, being so fidgety or restless that you have been moving around a lot more than usual N ot at all,?Thoughts that you would be better off or of hurting yourself in some way N ot at all, Total Score 1 0, I nterpretation M oderate Depression. I ntervention D epression Screening Findings P ositve, F ollow-Up for Depression M ental health treatment assessment, Patient follow-up to return when and if necessary, S uicide Risk Assessment Performed? , A dditional Evaluation for Depression P sychiatric interview and evaluation, N hellen of the standardized tool used for adult depression screening: P atient Health Questionnaire (PHQ-9). H istory of Presenting Problem: Medication Side Effects n o side effects. A nxiety s table. D epression O nset: years ago, Associated Symptoms: low motivation. S leep disturbance h x sleep apnea, needs new rx for cpap. A DHD s ymptoms present, gets off task, poor motivation. He would like to accomplish things.. P sychotherapy m atthew cuped. P ast Medication history: paroxetine, atomoxetine. * ROS: P erformance Met: N ormal blood pressure reading documented, follow-up not required ( G8783). * Medical History: * Surgical History: * Hospitalization/Major Diagno stic Procedure: * Social History: T obacco Use: T obacco Control (Standard) T obacco use: N onsmoker. M igrated Social History: M igrated Social History: Alcohol Intake: Occasional 09/18/2022,Tobacco Years: Never smoker 09/18/2022. M iscellaneous: A dvance Care Planning A re you your own decision-maker Y es, D o you have Power of Director Money for Health or Medical? Y es. * Medications: T akingTamsulosin HCl 0.4 MG Capsule Oral Candesartan Cilexetil 32 MG Tablet Oral Atorvastatin Calcium 20 MG Tablet Oral amLODIPine Besylate 5 MG Tablet Oral Trintellix 20 MG Tablet 1 tablet Orally Once a day Methylphenidate HCl ER 36 MG Tablet Extended Release 2 tablet every morning Oral once a day Methylphenidate HCl ER 36 MG Tablet Extended Release 2 tablet every morning Oral once a day Trintellix 20 MG Tablet 1 tablet Oral Once a day Medication List reviewed and reconciled with the patientTaking Tamsulosin HCl 0.4 MG Capsule Oral Taking Candesartan Cilexetil 32 MG Tablet Oral Taking Atorvastatin Calcium 20 MG Tablet Oral Taking amLODIPine Besylate 5 MG Tablet Oral Taking Trintellix 20 MG Tablet 1 tablet Orally Once a day Taking Methylphenidate HCl ER 36 MG Tablet Extended Release 2 tablet every morning Oral once a day Taking Methylphenidate HCl ER 36 MG Tablet Extended Release 2 tablet every morning Oral once a day Taking Trintellix 20 MG Tablet 1 tablet Oral Once a day Medication List reviewed and reconciled with the patient * Allergies: N .K.D.A.no[Allergies Verified] Objective: * Vitals: B P:105/69mm Hg, HR:97/min, Wt:247lbs, Wt-k.04 kg, Ht: 72.00 in, Ht-cm: 182.88 cm, BMI:33.5Index, Body Surface Area: 2.38. * Examination: P sychiatry: Appearance: w ell-groomed, well-nourished, .... Affect / mood: a ppropriate, full range. Attention: g ood. Attitude: c ooperative. Suicidal ideation: n one. Memory status: n o impairment noted. Degree of awareness of surroundings: w ithin normal limits.? Delusions: n o. Hallucinations: n o. Insight: g ood. Intellectual functioning: n o impairment noted. Judgement: g ood. Orientation: a wake, alert and oriented x 3. Perceptual disorders: n o perceptual disorder noted. Psychomotor activity: w ithin normal range. Speech / language: a ppropriate pitch/modulation, clear and coherent, normal rate, volume, and articulation (RVR), proper grammar used. Thought content: a ppropriate. Thought process: i ntact. G eneral Examination: - Mental Status Examination: - Patient denies experiencing depression symptoms. - Reports ongoing struggles with motivation, which worsens in winter. - Describes fluctuating focus and concentration, particularly noting difficulty resuming tasks after interruptions. - No feelings of sadness or low self-esteem reported. - Expresses desire for practical tools to manage ADHD symptoms. - Physical Examination: - Weight gain of approximately 10-15 pounds noted. - History of using CPAP for sleep apnea, with potential need for resumption due to weight gain and possible sleep disturbances. Assessment: * Assessment: 1. G eneralized anxiety disorder - F41.1 (Primary) 2 . A ttention-deficit hyperactivity disorder, combined type - F90.2 3 . M ajor depressive disorder, recurrent, mild - F33.0 Plan: * Treatment: 2. A ttention-deficit hyperactivity disorder, combined type Start Lisdexamfetamine Dimesylate Capsule, 30 MG, 1 capsule in the morning, Orally, Once a day, 30 days, 30 Capsule, Refills 0; S top Methylphenidate HCl ER Tablet Extended Release, 36 MG, 2 tablet every morning, Oral, once a day. 3. M ajor depressive disorder, recurrent, mild Refill Trintellix Tablet, 20 MG, 1 tablet, Oral, Once a day, 90 days, 90 Tablet, Refills 1. ? 4. O thers Clinical Notes: 1. ADHD: - Patient reports struggling with [...] [facility] therapist Beverly Moore in [place]. - Recommended farmhopping as a resource for ADHD information and [...] need for a sleep study if necessary. * Procedure Codes: G 8783 NORMAL BP READING DOC F/U NOT [id number] BEHAV ASSMT W/SCORE & DOCD/STAND [id number] MOST RECENT SYSTOLIC BP < 140MM [id number] MOST RECENT DIASTOLIC BP < 90MM HG * Follow Up: 4 Weeks (Reason: f/u adhd) * Billing Information: * Visit Code: 15875 OFFICE OUTPATIENT VISIT 25 MINUTES DETAILED HISTORY AND EXAM/MODERATE MEDICAL DECISION MAKING. * Procedure Codes: G8783 NORMAL BP READING DOC F/U [place] RQR. 49380 BEHAV ASSMT W/SCORE & DOCD/STAND INSTRUMENT. G8752 MOST RECENT SYSTOLIC BP < 140MM HG. G8754 MOST RECENT DIASTOLIC BP < 90MM HG. * LOPMENT SCIENTIST Sign off status: Completed true * Provider: STONE FAYE Date: 0 05/01/2024 Generated for Andrei rhodes/Amy/Celinaransmitting on: 0 06/02/2024 10:56 AM CDT History and Physical Notes * HPI (History of Present Illness) Category Sub-Category Detail Notes Category Not es History of Presenting Problem Anxiety stable Depression Onset: years ago, As sociated Symptoms: low motivation Sleep disturbance hx sleep apnea, need s new rx for cpap ADHD symptoms present, ge ts off task, poor motivation. He would like to accomplish things. Psychotherapy siri moreno Medication Side Effects no side effects Depression screening PHQ-9 Little inte rest or pleasure in doing things: More than half the days Feeling down, depressed, or hopeless: Se veral days Trouble falling or staying asleep, or sl eeping too much: Nearly every day Feeling tired or having little energy: N early every day Poor appetite or overeating: Not at all Feeling bad about yourself o r that you are a failure, or have let yourself or your family down: Several days Trouble concentrating on thi ngs, such as reading the newspaper or watching television: Not at all Moving or speaking so slowly that other people could have noticed; or the opposite, being so fidgety or restless that you have been moving around a lot more than usual: Not at all Thoughts that you would be b dharmesh off or of hurting yourself in some way: Not at all Total Score: 10 Interpretation: Moderate Depression Intervention Depression Screening Findings: P ositve Follow-Up for Depression: [facility] treatment assessment, Patient follow-up to return when and if necessary Suicide Risk Assessment Performed: Additional Evaluation for Depression: Ps ychiatric interview and evaluation Name of the standardized too l used for adult depression screening:: Patient Health Questionnaire (PHQ-9) Depression Screening DINORA-7 (2018 Edition) Feelin g nervous, anxious, or on edge: More than half the days Not being able to stop or control worryi ng: Several days Worrying too much about different things : Several days Trouble relaxing: Not at all Being so restless that it is hard to sit still: Not at all Becoming easily annoyed or irritable: No t at all Feeling afraid as if something awful miguel ht happen: Not at all Total DINORA-7 Score: 4 If you checked any problems, how difficult have they made it for you to do your work, take care of things at home, or get along with other people?: Not difficult at all Interpretation of Total: (0 to 4) No Anx iety [place]-Suicide Severity Rating Scale Suicide Risk (CSRS-screener) in the past one month Have you wished you were or wished you could go to sleep and not wake up?: No in the past one month Have y ou actually had any thoughts of killing yourself?: No Examination Category Sub-Category Detail Notes Category Not es Psychiatry Appearance: well-groomed, well-nourished , ... Attitude: cooperative Psychomotor activity: within normal rang e Attention: good Degree of awareness of surroundings: wit hin normal limits Orientation: awake, alert and salome ented x 3 Affect / mood: appropriate, full ra nge Speech / language: appropriate pitch/mo dulation, clear and coherent, normal rate, volume, and articulation (RVR), proper grammar used Insight: good Judgement: good Thought process: intact Thought content: appropriate Perceptual disorders: no perceptual diso rder noted Suicidal ideation: none Intellectual functioning: no impairment noted Memory status: no impairment noted Delusions: no Hallucinations: no General Examination - Mental Status Examination: - Patient denies experiencing depression symptoms. - Reports ongoing struggles with motivation, which worsens in winter. - Describes fluctuating focus and concentration, particularly noting difficulty resuming tasks after interruptions. - No feelings of sadness or low self-esteem reported. - Expresses desire for practical tools to manage ADHD symptoms. - Physical Examination: - Weight gain of approximately 10-15 pounds noted. - History of using CPAP for sleep apnea, with potential need for resumption due to weight gain and possible sleep disturbances.
[2024-06-02 11:03] LABS: Hemoglobin 14.8 g/dL (14.0-18.0); Mean Corpuscular HGB Conc 33.6 g/dl (32-36); Mean Corpuscular Hemoglobin 32.1 pg (26-34); Mean Corpuscular Volume 95.4 fl (80-100); Mean Platelet Volume 10.8 fl (7.4-10.4); Platelet Count Result 246 k/mm3 (150-375); Red Blood Count 4.61 M/mm3 (4.6-6.20); Red Cell Distribution Width 12.8 % (11.5-14.5); White Blood Count 7.3 K/mm3 (4.5-10.0)
[2024-06-02 11:10] LABS: Alanine Aminotransferase 18 U/L (6-50); Albumin Level 4.3 g/dL (3.5-5.1); Alkaline Phosphatase 83 U/L (38-126); Anion Gap 10 mmol/L (4-12); Aspartate Amino Transferase 22 U/L (17-59); Blood Urea Nitrogen 15 mg/dL (9-20); Calcium 9.3 mg/dL (8.4-10.2); Carbon Dioxide 22 mmol/L (22-30); Chloride 107 mmol/L (98-107); Cholesterol 129 mg/dL (0-200); Estimated Glomerular Filt Rate > 60; Glucose 101 mg/dL (65-110); HDL Direct 42 mg/dL; Potassium 3.9 mmol/L (3.4-5.0); Sodium 139 mmol/L (137-145); Triglycerides 49 mg/dL (<150)
[2024-06-02 11:20] LABS: LDL Cholesterol Direct 68 mg/dL
[2024-06-02 11:41] LABS: Prostate Specific Antigen 0.8 ng/mL (< OR = 4.0)
[2024-06-02 11:44] LABS: Free T4 Free Thyroxine 1.12 ng/dL (0.78-2.19)
[2024-06-06 14:58] LABS: Testosterone Total 615 ng/dL (250-1100)
== END 2024-06-02 10:15 | disposition home or self-care (01) ==
LOC: ANHLAB 10:16
PROVIDERS: PCP Nurse Practitioner; Visit Provider Nurse Practitioner
DX: E03.9 Hypothyroidism, unspecified (principal); R53.83 Other fatigue; I10 Essential (primary) hypertension; E78.5 Hyperlipidemia, unspecified; Z12.5 Encounter for screening for malignant neoplasm of prostate
CPT/HCPCS: 36415; 80053; 80061; 84153; 84403; 84439; 84443; 85027; G0103

== ENCOUNTER 2024-09-25 08:04 | Outpatient (CLI) | payer BC, SELFPAY ==
--- OUTSIDE RECORDS SUMMARY | 2024-09-25 08:07 | XMS_ITS | Data Portability ---
Author Organization [facility] [employer], Main Office Address [address] [place] [address] Care Team Providers Care Apartment Assistant Manager Name Role Phone YESSY QUINTANILLA Primary Care Provider [phone] YESSY QUINTANILLA Referring Provider [phone] Assessment No assessment recorded. Plan of Treatment [...] 3 view No observ ation record ed. [id number] [facility] [address], [place], [address], 05/20/2022 18:54:08 Result Notes None recorded. Problems Name Problem SNOMED Code Status Onset Date Resolution Date Notes Provider Name and Address Organization Details Recorded Time Current knee cartilage tear Active Not Available [facility] 3 18:52:59 Current tear of medial cartilage AND/OR meniscus of knee Active Not Available [facility] 3 18:52:59 Osteoarthr itis of right knee joint [id number] 00 Active 2021 Not Available [facility] 3 18:52:59 Osteoarthr itis [id number] Active Not Available [facility] 3 18:52:59 Notes:Some problems listed i n Document: #[id number] could not be added to this patient's chart. Please review this document and add these problems to the patient's chart manually as needed. Problem Notes None recorded. Medical Equipment None Reported. [...] injection administe red by the provider active [facility]: 0003- 0494- 20 Not Available Not Available [...] injection administe red by the provider active [facility]: 0409- 4276- 17 Not Available Not Available [...] Updated DateTime 06/30/2021 32.5 kg/m2 182.88 cm 992163.17 g Not Available [facility] 05/20/2022 18:52:52 Date Recorded Body mass index (BMI) Body height Body weight Provider Name and Address Organization Details Last Updated DateTime 03/18/2021 32.5 kg/m2 182.88 cm 861134.17 g Not Available [facility] 05/20/2022 18:52:52 Social History None recorded. Functional Status Question Answer Note LastModified by Organizat ion Details LastModified Time What is your level of alcohol consumption? None [id number] Information not available 05/20/2022 Mental Status None recorded. Family History Relationship Description Onset Age of this Age Resolved Age Notes LastModified by Organization Details LastModified Time Mother Heart disease [id number] Not available 05/20/2022 18:52:22 Mother Cerebrovascu lar accident [id number] Not available 05/20/2022 18:52:22 Mother Family history of malignant neoplasm [id number] Not available 05/20/2022 18:52:22 Mother Hypertensive disorder [id number] Not available 05/20/2022 18:52:22 Medical History Condition Response CANCER: SPECIFY Y Past Encounters Encounter ID Performer Location Encounter Start Date Encounter Closed Date Diagnosis/Indication Diagnosis SNOMED-CT Code Diagnosis ICD10 Code Diagnosis Note [id number] MD PAUL [facility] [address] [place] [address] 03/18/2021 00:00:00 03/18/2021 10:07:19 [id number] Joaquín Navarro MD [facility] [address] [facility] [address] [place] [address] 06/30/2021 00:00:00 06/30/2021 09:55:36 Health Concerns Section Related Observation LastModified by Organization Detai ls LastModified Time None Recorded Concern Status LastModified by Organization Details LastModified Time None Recorded Advance Directives Directive None Recorded Payers Insurance Date Sequence Insurance Name Policy Number Policy Whitaker Covered Member ID Whitaker Member ID Guarantor Name 05/20/2022 1 [employer] - [employer] (PPO) [id number] Pedro Almonte [id number] Pedro Almonte Notes Date Note Type Note Provider Name [...] change in bowel/bladder habits;swelling;wa rmth;grinding Not Available [employer] 03/18/2021 10:07:19 06/30/2021 text/html KneeReported bypatient.Quality: aching; [...] change in bowel/bladder habits;swelling;wa rmth;grinding Not Available [facility] 06/30/2021 09:55:36
--- OUTSIDE RECORDS SUMMARY | 2024-09-25 08:07 | XMS_ITS | Patient Health Record ---
Author Organization [facility] [employer] [facility] Address [address] [facility] [address] [place] [address] Care Team Providers Care Stone Paver Name Role Phone Sam CLIFTON, Milo Primary Care Provider Donnie Wilkinson Unavailable [phone] Louise Vazquez Unavailable [phone] Allergies No Known Allergies Reason For Referral No Information Medications Medication SIG (Take, Route, Frequency, Duration) Notes Start Date End Date Status amLODIPine Besylate 5 MG Oral 07/26/2023 Active Atorvastatin Calcium 20 MG Oral 07/26/2023 Active Trintellix 20 MG 1 tablet Orally Once a day; Duration: 30 day(s) 12/20/2023 Active Trintellix 20 MG 1 tablet Oral Once a day; Duration: 90 days Active Lisdexamfetamine Dimesylate 30 MG 1 capsule in the morning Orally Once a day; Duration: 30 days 09/08/2024 Active Candesartan Cilexetil 32 MG Oral 07/26/2023 Active Tamsulosin HCl 0.4 MG Oral 07/26/2023 Active Social History Tobacco Use: Social History Observation Description Date Details (start date - stop date) Never Smoker NA - NA Sex Assigned At : Social History Observation Description Sex Assigned At Male Tobacco Control (Standard) Question Answer Notes Tobacco use: Nonsmoker Problems Problem Type SNOMED Code ICD Code Onset Dates Problem Status W/U Status Risk Notes Problem Major depressive disorder, recurrent, mild (F33.0) Active confirmed Problem Generalized anxiety disorder (82373006) Generalized anxiety disorder (F41.1) Active confirmed Problem Attention deficit hyperactivity disorder, combined type (46736679) Attention-deficit hyperactivity disorder, combined type (F90.2) 07/26/19 24 Active confirmed Vital Signs Heart Rate 85 /min 06/26/2024 Blood pressure diastolic 76 mm Hg 06/26/2024 Height-cm 182.88 cm 06/26/2024 Weight-kg 111.13 kg 06/26/2024 Height 72.00 in 06/26/2024 Blood pressure systolic 120 mm Hg 06/26/2024 Weight 245 lbs 06/26/2024 BMI 33.22 kg/m2 06/26/2024 Encounters Encounter Location Date Provider Diagnosis [facility] [employer] [facility] [address] [place] [address] 12/29/2023 Donnie Sy Generalized anxiety disorder F41.1 ; Attention-deficit hyperactivity disorder, combined type F90.2 and Major depressive disorder, recurrent, mild F33.0 [facility] [address] [facility] [address] [place] [address] 05/01/2024 Donnie Sy Generalized anxiety disorder F41.1 ; Attention-deficit hyperactivity disorder, combined type F90.2 and Major depressive disorder, recurrent, mild F33.0 [facility] [address] [facility] [address] [place] [address] 06/26/2024 Donnie Sy Generalized anxiety disorder F41.1 ; Attention-deficit hyperactivity disorder, combined type F90.2 ; Major depressive disorder, recurrent, mild F33.0 and Encounter for screening for cardiovascular disorders Z13.6 [facility] [employer] [facility] [address] [facility] [address] [place] [address] 10/26/2023 Donnie Sy Attention-deficit hyperactivity disorder, combined type F90.2 [facility] [address] [place] [address] 12/02/2023 Donnie Sy Attention-deficit hyperactivity disorder, combined type F90.2 [facility] [address] [place] [address] 12/17/2023 Donnie Sy Major depressive disorder, recurrent, mild F33.0 [facility] [address] [place] [address] 12/17/2023 Donnie Sy Major depressive disorder, recurrent, mild F33.0 [facility] [employer] [address] [place] [address] 01/11/2024 Donnie Sy Attention-deficit hyperactivity disorder, combined type F90.[address] [address] 02/21/2024 Donnie Sy Attention-deficit hyperactivity disorder, combined type F90.[address] [address] 04/05/2024 Donnie Sy Attention-deficit hyperactivity disorder, combined type F90.[address] [address] 04/28/2024 Donnie Sy Major depressive disorder, recurrent, mild F33.[address] [address] 06/02/2024 Donnie Sy Attention-deficit hyperactivity disorder, combined type F90.[address] [address] 09/08/2024 Louise Kellikilo Attention-deficit hyperactivity disorder, combined type F90.2 Assessments Encounter Date Diagnosis (ICD Code) Assessment Notes Treatment Notes Treatment Clinical Notes Section Notes 12/02/2023 Attention-defici t hyperactivity disorder, combined type (ICD-10 - F90.2) 01/11/2024 Attention-defici t hyperactivity disorder, combined type (ICD-10 - F90.2) 02/21/2024 Attention-defici t hyperactivity disorder, combined type (ICD-10 - F90.2) 04/05/2024 Attention-defici t hyperactivity disorder, combined type (ICD-10 - F90.2) [...] depressive disorder, recurrent, mild (ICD-10 - F33.0) 06/02/2024 Attention-defici t hyperactivity disorder, combined type (ICD-10 - F90.2) 09/08/2024 Attention-defici t hyperactivity disorder, combined type (ICD-10 - F90.2) 06/26/2024 Generalized anxiety disorder (ICD-10 - F41.1) stable 10/26/2023 Attention-defici t hyperactivity disorder, combined type (ICD-10 - F90.2) 06/26/2024 Attention-defici t hyperactivity disorder, combined type (ICD-10 - F90.2) 12/17/2023 Major depressive disorder, recurrent, mild (ICD-10 - F33.0) Electronic Prior Authorization was requested for Trintellix 20 MG Tablet. Provider can order medication once approval received. 05/01/2024 Attention-defici t hyperactivity disorder, combined type (ICD-10 - F90.2) 12/29/2023 Attention-defici t hyperactivity disorder, combined type (ICD-10 - F90.2) [...] months to monitor progress and medication effectiveness. 06/26/2024 Major depressive disorder, recurrent, mild (ICD-10 - F33.0) 06/26/2024 Encounter for screening for cardiovascular disorders (ICD-10 - Z13.6) 05/01/2024 Other 1. ADHD: - Patient reports [...] [facility] and therapist Beverly Moore in [place]. - Recommended [employer] as a resource for ADHD information and [...] need for a sleep study if necessary. 06/26/2024 Other Galen France, an adult male patient with a history of ADHD and depression, presents for follow-up of medication management, reporting recent respiratory illness and medication effectiveness. Attention Deficit Hyperactivity Disorder (ADHD) Assessment: Patient reports good response to Vyvanse (lisdexamfetamine ) 30 mg, noting improved motivation and ability to engage in tasks even during periods of illness. Patient finds Vyvanse more effective than previous treatment with Concerta. Initial side effect of erectile dysfunction has resolved. Current dose appears to be managing symptoms adequately. Plan: - Continue Vyvanse (lisdexamfetamine ) 30 mg PO daily - Follow up in 2 months to reassess medication efficacy Depression Assessment: Patient reports stable mood on current medication regimen. Recent unintentional discontinuation of Trintellix for 1.5 weeks due to pharmacy delay resulted in increased irritability and anger, suggesting medication effectiveness. Patient recognizes the importance of consistent medication use for mood stability. Plan: - Continue Trintellix (dose not specified) - Educate patient on importance of medication adherence and planning refills in advance Recent Respiratory Illness Assessment: Patient reports experiencing prolonged respiratory symptoms over the past two months, including head and chest congestion with persistent cough. Symptoms have been cyclical, improving with medication use but recurring upon discontinuation. This illness has impacted sleep and potentially immune function. Plan: - Monitor for resolution of respiratory symptoms - Reassess impact on overall functioning at next follow-up appointment the note is transcribed using speech recognition software. It is a reflection of a visit with the patient. It might have some inaccuracy, including medication names and transcribing errors, though efforts have been made to correct them. Plan Of Treatment Next Appt Details Provider Name:Donnie ascencio, 09/29/2024 01:45:00 PM, [address] [facility] [address], [facility] [address], [place], [address], Insurance Providers Payer Name Payer Address Payer Phone Subscriber Number Group Number Insured Name Patient Relationship to Insured Coverage Start Date Coverage End Date [facility] [employer] [address] [place] [address] [id number] [place] Spouse - patient is the spouse of the insured Medical (General) History Medical History History ICD Code Problems: Attention deficit hyperactivit y disorder, combined type Generalized anxiety disorder Mild recurrent major depression Moderate recurrent major depression , Surgical History Surgery Date(Month/Year) Any surgical history 10/21/1995
== END 2024-09-25 08:05 | disposition home or self-care (01) ==
LOC: ANHAUDIO 08:04
PROVIDERS: PCP Nurse Practitioner; Visit Provider Nurse Practitioner
DX: H90.3 Sensorineural hearing loss, bilateral (principal)
CPT/HCPCS: 92557; 92567

== ENCOUNTER 2024-09-25 08:57 | Outpatient (RCR) | payer BC, SELFPAY | END 2024-09-25 23:59 | disposition home or self-care (01) | LOC: ANHAUDIO 08:57 | PROVIDERS: PCP Nurse Practitioner; Visit Provider Nurse Practitioner | DX: Z46.1 Encounter for fitting and adjustment of hearing aid (principal) | CPT/HCPCS: V5014 ==